=== PATIENT | male | born 1955 | race Caucasian/White ===

== ENCOUNTER 2017-07-26 20:40 | Emergency (ER) | payer OTHER ==
[~2017-07-26] VITALS: Ht 177.8 cm; Wt 120.2 kg
[2017-07-26] MEDS ORDERED: ASPIR 8181 M1 PO (20:53)
[2017-07-26 21:16] LABS: ABSOLUTE LYMPHOCYTES 0.9 thou/uL (0.8-5.3); ABSOLUTE MONOCYTES 0.8 thou/uL (0.0-1.2); ABSOLUTE NEUTROPHILS 2.8 thou/uL (1.6-8.1); BASOPHILS 0.7 %; EOSINOPHILS 0.2 %; HEMATOCRIT 44.8 % (42.0-52.0); HEMOGLOBIN 15.6 gm/dL (14.0-18.0); LYMPHOCYTES 19.5 %; MCHC 34.7 g/dL (28.0-37.0); MCV 106.4 fL (80.0-100.0); MONOCYTES 17.3 %; MPV 8.2 fl. (7.2-11.1); NUCLEATED RBCS 0 /100WBC; PLATELET COUNT* 138 thou/uL (150-400); POLYS 62.3 %; RBC 4.21 mil/uL (4.50-6.00); RDW-CV 12.6 % (10.5-14.5); WBC 4.6 thou/uL (4.0-11.0)
[2017-07-26 21:23] LABS: ANION GAP 10 mmol/L (7-16); BUN 15 mg/dL (7-18); CALCIUM 8.8 mg/dL (8.5-10.1); CHLORIDE 99 mmol/L (98-107); CO2 25 mmol/L (21-32); CREATININE 1.1 mg/dL (0.6-1.3); GLUCOSE 109 mg/dL (70-99); POTASSIUM 3.5 mmol/L (3.5-5.1); SODIUM 134 mmol/L (136-145)
[2017-07-26 21:26] LABS: INR 1.1; PROTIME 10.9 Seconds (9.20-11.50)
[2017-07-26 21:34] LABS: ALBUMIN 3.9 g/dL (3.4-5.0); ALKALINE PHOSPHATASE 47 U/L (46-116); LIPASE 186 U/L (73-393); NT-PRO BRAIN NAT PEPTIDE 59 pg/mL (<300); SGOT 93 U/L (15-37); SGPT 138 U/L (30-65); TOTAL BILIRUBIN 0.9 mg/dL (<0.1-1.0); TOTAL PROTEIN 7.6 g/dL (6.4-8.2); TROPONIN-I LEVEL <0.06 ng/mL (<0.06)
[2017-07-26 21:58] LABS: INFLUENZA A ANTIGEN None Detected (None Detect); INFLUENZA B ANTIGEN None Detected (None Detect)
[2017-07-26] MEDS ORDERED: CELEBREX 200 M200 MG PO (22:11)
[2017-07-26] MEDS ORDERED: PREDNISONE50 MG PO (23:04)
[2017-07-26 23:26] VITALS: BP 142/81
--- NOTE | 2017-07-27 13:07 | EKG ---
[place] [address] ELECTROCARDIOGRAM REPORT Name: DELMAR RIVERA Room: [facility] [place]#: [id number] Admission: 07/26/17 Attend Phys: Discharge: 07/26/17 Date of : 57 Report #: [id number] THIS REPORT FOR: //name// [facility] ED Test Date: 2017-07-26 Test Time: 20:55:23 Pat Name: DELMAR MIGUEL Department: Room: Gender: Maintenance Journeyman: GELY Donald : 1955 Requested By: Sarahi Sanders Order Number: [id number] MD: Paul Corbett Measurements Intervals [place] Rate: 94 P: 25 AK: 152 QRS: -12 QRSD: 88 T: 17 QT: 311 QTc: 389 Interpretive Statements Sinus rhythm Low voltage, precordial leads Abnormal R-wave progression, early transition Baseline wander in lead(s) V3 No previous ECG available for comparison Electronically Signed On 07-27-2017 13:07:02 CDT by Paul Corbett [email or web address] <ELECTRONICALLY SIGNED> By: Sara Corbett MD, [facility] 07/27/177 54 54 Sara Corbett MD, [facility] /EPI
== END 2017-07-26 23:29 | disposition home or self-care (01) ==
LOC: M.ERS 20:40
PROVIDERS: Emergency Medicine
DX: J40 Bronchitis, not specified as acute or chronic (principal); I48.91 Unspecified atrial fibrillation; Z96.642 Presence of left artificial hip joint; Z87.891 Personal history of nicotine dependence